=== PATIENT | female | born 1990 | race Caucasian/White ===

== ENCOUNTER 2019-03-11 08:25 | Inpatient (IN) | payer BC, OTHER ==
--- NOTE | 2019-03-11 09:19 | HP ---
Past Medical History - Admission Chief Complaint: 29 y/o P0 female with SIUP at 41 weeks here in early labor, c/ o vaginal bleeding and decreased FM. History of Present Illness: 29 y/o p0 at 41 weeks, here with c/o vaginal bleeding, cramps, decreased FM. complicated only by marginal cord insertion and maternal obesity. Late term . Was to be induced 03/15/19. History Source: Patient, Medical Record - Past Medical History Cardiovascular: No: AFIB, HTN Pulmonary: No: COPD Hepatobiliary: No: Hepatitis B, Hepatitis C Renal/: No: UTI Reproductive: No: Fibroids, PID Heme/Onc: No: Anemia Infectious Disease: No: MRSA, STD's Psych: No: Anxiety, Bipolar, Depression Endocrine: No: Diabetes Mellitus, Hyperthyroidism - Past Surgical History Past Surgical History: Yes: None Hx Myomectomy: No Hx Transabdominal Cerclage: No - Alcohol/Substance Use Hx Alcohol Use: No History of Substance Use: reports: None - Social History Usual Living Arrangement: Yes: With Spouse ADL: Independent History of Recent Travel: No Home Medications - Allergies Allergies/Adverse Reactions: Allergies Allergy/AdvReac Type Severity Reaction Status Date / Time Sulfa (Sulfonamide Allergy Severe Hives Verified 03/11/19 08:59 Antibiotics) sulfamethoxazole Allergy Severe Rash Verified 03/11/19 09:23 [From Bactrim] trimethoprim [From Bactrim] Allergy Severe Rash Verified 03/11/19 09:23 - Home Medications Home Medications: Ambulatory Orders Pnv No.95/Ferrous Fum/Folic AC [ Formula] 1 each PO DAILY 03/11/19 Review of Systems - Review of Systems Constitutional: reports: No Symptoms Eyes: reports: No Symptoms HENT: reports: No Symptoms Neck: reports: No Symptoms Cardiovascular: reports: No Symptoms Respiratory: reports: No Symptoms Gastrointestinal: reports: No Symptoms Genitourinary: reports: Vaginal Bleeding Musculoskeletal: reports: No Symptoms Integumentary: reports: No Symptoms Neurological: reports: No Symptoms Endocrine: reports: No Symptoms Hematology/Lymphatic: reports: No Symptoms Psychiatric: reports: No Symptoms Physical Exam - Maternity Constitutional: Yes: Well Nourished, No Distress, Calm Eyes: Yes: Conjunctiva Clear, EOM Intact HENT: Yes: Atraumatic Neck: Yes: Supple Cardiovascular: Yes: Regular Rate and Rhythm Lungs: Clear to auscultation - Abdominal Exam/OB Fundal Height: 40 Number of Fetuses: Single Presentation: Vertex Contractions: Yes Regularity: Irregular Intensity: Mild/Mod Heart Rate (range): 140 Accelerations: Uniform Decelerations: None - Vaginal Exam/OB Vaginal Bleediing: Yes, Light (c/w bloody show) Dilatation (cm): 1 Effacement (%): 50 Amniotic Membrane Status: Intact Presentation: Vertex/Position Station: -3 - Physical Exam Psychiatric: Yes: Alert, Oriented Hemorrhage Risk Assessment - Risk Factors Medium Risk Factors: Yes: None High Risk Factors: Yes: None Risk Score: 1 Risk Level: Medium Risk Problem List - Problems (1) Post-dates Code(s): O48.0 - POST-TERM Assessment/Plan 29 y/o with SIUP at 41 weeks, contractions, VB, post dates - will admit to L&D IV fluids ambulation re evalaute, may need labor augmentation GBS negative
[2019-03-11] MEDS ORDERED: PROMETHAZINE HCL 25 MG/1 ML VIAL IVPUSH ONE (09:28)
[2019-03-11] MEDS ORDERED: BUTORPHANOL TARTRATE 1 MG/ML VIAL IVPB ONE (09:28)
[2019-03-11 09:50] LABS: BASO % 0.5 % (0-2.0); EOS % 0.8 % (0-4.5); HEMATOCRIT 36.3 % (32.4-45.2); LYMPH % 25.9 % (8-40); MCH 27.6 pg (25.7-33.7); MCHC 33.1 g/dl (32.0-36.0); MEAN CELL VOLUME 83.6 fl (80-96); MEAN PLT VOLUME 9.6 fl (7.5-11.1); MONO % 6.8 % (3.8-10.2); PLATELET COUNT 170 K/MM3 (134-434); RBC 4.35 M/mm3 (3.60-5.2); WHITE BLOOD COUNT 6.2 K/mm3 (4.0-10.0)
[2019-03-11 10:06] LABS: INR 0.98 (0.83-1.09); PROTHROMBIN TIME (PATIENT) 11.6 SEC (9.7-13.0)
[2019-03-11 10:09] LABS: ACTIVATED PTT 26.5 SECONDS (25.2-36.5)
[2019-03-11 10:16] LABS: BLOOD UREA NITROGEN 7.5 mg/dL (7-18); CALCIUM 8.8 mg/dL (8.5-10.1); CREATININE 0.4 mg/dL (0.55-1.3); POTASSIUM 3.8 mmol/L (3.5-5.1)
[2019-03-11 10:18] VITALS: BMI 37.3
[2019-03-11] MEDS: ELECTROLYTE-148 SOLN 1,000 ML IV SCH (10:30)
[2019-03-11] MEDS ORDERED: BUTORPHANOL TARTRATE 1 MG/ML VIAL ONE ×2 (18:49)
[2019-03-11] MEDS ORDERED: PROMETHAZINE HCL 25 MG/1 ML VIAL ONE (18:49)
--- NOTE | 2019-03-11 21:19 | CONSULT ---
Past Medical History, Laborist - Primary Care Physician PCP:: Dr. Matt (Consultation requested.) - Admission Chief Complaint: 29 years old white female, , admitted at 41 wks with some bleeding and irregular contractions. Pt. was restles and uncomfortable. She was given Stadol & Phenergan which helped. Needs to be evaluated and plans formalized. History of Present Illness: Uneventful other than postdates. GBS neg. Marginal cord insertion. Membranes intact. History Source: Patient Limitations to Obtaining History: No Limitations - Past Medical History TELEGRAPH OPERATOR: Denies/None Cardio/Vascular: Denies/None Pulmonary: Denies/None Gastrointestinal: Denies/None Hepatobiliary: Denies/None Renal/: Denies/None Reproductive: Denies/None ...: 1 ...Para: 0 ...Term: 0 ...: 0 ...Spon : 0 ...Induced : 0 ...Multiple Gestation: 0 ...LMP: 05/28/18 ... Weeks Gestation by Dates: 41.0 ...EDC by Dates: 03/04/19 ...EDC by Sono: 03/04/19 Heme/Onc: Denies/None Infectious Disease: Denies/None Psych: Denies/None Musculoskeletal: Denies/None Rheumatology: Denies/None ENT: Denies/None Endocrine: Denies/None Dermatology: Denies/None - Past Surgical History Past Surgical History: Yes: None - Smoking History Smoking history: Never smoked Have you smoked in the past 12 months: No - Alcohol/Substance Use Hx Alcohol Use: No History of Substance Use: reports: None - Social History ADL: Independent History of Recent Travel: No Review of Systems - Review of Systems Constitutional: reports: No Symptoms Eyes: reports: No Symptoms HENT: reports: No Symptoms Neck: reports: No Symptoms Cardiovascular: reports: No Symptoms Respiratory: reports: No Symptoms Gastrointestinal: reports: No Symptoms Genitourinary: reports: No Symptoms Breasts: reports: No Symptoms Reported Musculoskeletal: reports: No Symptoms Integumentary: reports: No Symptoms Neurological: reports: No Symptoms Endocrine: reports: No Symptoms Hematology/Lymphatic: reports: No Symptoms Psychiatric: reports: No Symptoms (WNL other that related.) Physical Exam - Maternity Vital Signs: Vital Signs Temperature 98.2 F 03/11/19 14:00 Pulse Rate 88 03/11/19 15:00 Respiratory Rate 20 03/11/19 15:00 Blood Pressure 114/68 03/11/19 15:00 O2 Sat by Pulse Oximetry (%) Constitutional: Yes: Well Nourished Eyes: Yes: WNL HENT: Yes: WNL Neck: Yes: WNL Cardiovascular: Yes: WNL Lungs: Clear to auscultation Breast(s): Yes: WNL - Abdominal Exam/OB Fundal Height: 40 Number of Fetuses: Single Presentation: Vertex Contractions: No Regularity: Irritability Intensity: Mild Monitor Mode: External Heart Rate (range): WNL, cat 1. Heart Rate Location: Midline Category: I Accelerations: Non-Uniform Decelerations: None - Vaginal Exam/OB Vaginal Bleediing: No Speculum Exam: No Dilatation (cm): 1 Effacement (%): 0 Amniotic Membrane Status: Intact Presentation: Vertex/Position Station: -3 - Physical Exam Musculoskeletal: Yes: WNL Extremities: Yes: WNL Edema: LUE: Trace, RUE: Trace, LLE: Trace, RLE: Trace Integumentary: Yes: WNL ...Motor Strength: WNL Psychiatric: Yes: WNL - Labs Lab Results: CBC, BMP 03/11/19 09:25 03/11/19 09:25 Hemorrhage Risk Assessment - Risk Factors Risk Score: 0 Risk Level: Low Risk Procedures, Laborist - Patient Data Proposed induction date: 03/12/19 - Status Heart Rate: 140 Monitor Accelerations: Uniform Monitor Decelerations: None Criminal Investigator Variability: Average (6-10) Short Term Variability: Present - Gonzalez Score Dilation (cm): 1-2 Position of Cervix: Posterior Effacement %: 0-30 Station *: -3 Cervical consistency: Medium - Amniotic Membrane Amniotic Membrane Status: Intact - Indication for Induction (choose one) Medical complications or condition (diagnosis): Post dates 41 wks. Prodromal labor. - Consent Patient counseled re: risk, benefits, and alternatives: Yes Consent form signed as required: Yes - Labor Induction Labor induction: CERVIDIL (dinoprostone) (Cervidil inserted at 21:30 hrs.) Problem List - Problems (1) Irregular uterine contractions Assessment/Plan: Post dates 41 wks. Low Gonzalez score. Mild bleeding, prodromal labor. Code(s): O62.2 - OTHER UTERINE INERTIA (2) Third trimester bleeding Assessment/Plan IMP.: Postdates . Prodromal labor; irregular contractions. Mild bleeding; not significant. PLAN : Induction discussed, offered. Patient and family understand and agree. Cervidil overnight because of low Gonzalez score. INSERTED without difficulties. Pitocin induction tomorrow. Poss. Ambien. Observe. Continuous (intermittent?) monitoring. All questions answered.
[2019-03-11] MEDS ORDERED: DINOPROSTONE 10 MG VAGINAL SUPPOSITORY VG ONE (21:39)
--- NOTE | 2019-03-12 13:05 | PN ---
Ante-Partal Exam - Subjective Subjective: Pt with abd pain Vital Signs: Vital Signs Temperature 98.0 F 03/12/19 10:00 Pulse Rate 88 03/12/19 12:00 Respiratory Rate 20 03/12/19 12:00 Blood Pressure 122/78 03/12/19 12:00 O2 Sat by Pulse Oximetry (%) Bleeding: No Headache: No Visual changes: No Right upper quadrant pain: No - Contractions Contractions: Yes Regularity: Irregular Monitor Mode: External - Exam during Labor Variability: Moderate Heart Rate Location: [facility] Category: I Monitor Accelerations: Present Monitor Decelerations: None Exam: Vaginal Amniotic Membrane Status: Ruptured Amniotic Fluid: Clear Presentation: Vertex Station: -1 - Intrapartum Hemorrhage Risk Risk Score: 0 Risk Level: Low Risk - Assessment/Plan Assessment/Plan: IUP at 41 week Postdates Cat 1 SROM Irregular contractions Plan epidural
[2019-03-12] MEDS ORDERED: FENTANYL/BUPIVACAINE/NS/PF - PCEA - 50 ML DISP.SYRIN EP ONE ×2 (13:08→18:23)
[2019-03-12] MEDS ORDERED: NALOXONE HCL 0.4 MG/ML VIAL IVPUSH PRN (13:16)
[2019-03-12] MEDS ORDERED: BUPIVACAINE HCL/PF 2.5 MG/ML - 30 ML VIAL IJ ONE (13:18)
[2019-03-12] MEDS: FENTANYL/BUPIVACAINE/NS/PF - PCEA - 50 ML DISP.SYRIN EP SCH (13:40)
[2019-03-12] MEDS: ELECTROLYTE-148 SOLN 1,000 ML IV SCH (14:27)
--- NOTE | 2019-03-12 21:06 | PN ---
Ante-Partal Exam - Subjective Subjective: Pt comfortable with epidural Vital Signs: Vital Signs Temperature 99.1 F 03/12/19 21:00 Pulse Rate 108 H 03/12/19 20:00 Respiratory Rate 19 03/12/19 20:00 Blood Pressure 125/75 03/12/19 20:00 O2 Sat by Pulse Oximetry (%) 100 03/12/19 20:00 Headache: No Visual changes: No Right upper quadrant pain: No - Exam during Labor Heart Rate: 150 Variability: Moderate Heart Rate Location: [facility] Category: I Monitor Decelerations: None Exam: Vaginal Dilatation (cm): 3 Effacement (%): 90 Amniotic Membrane Status: Ruptured Amniotic Fluid: Clear Presentation: Vertex Station: -1 - Assessment/Plan Assessment/Plan: Arrest of Dilation - case discussed with mother and patient pt asked about pitocin IUP @ 41 week Cat 1 Plan Primary Section
[2019-03-12] MEDS ORDERED: METHYLERGONOVINE MALEATE 0.2 MG/1 ML AMP IM PRN (21:26)
[2019-03-12] MEDS ORDERED: SODIUM BICARBONATE 8.4% 50 MEQ/50 ML VIAL ONE (21:41)
[2019-03-12] MEDS ORDERED: LIDO 2%/EPI 1:200000 PRESRVFRE (20 ML SDVIAL) ONE (21:47)
--- NOTE | 2019-03-12 22:00 | PN ---
Ante-Partal Exam - Subjective Subjective: Pt comfortable with epidural Vital Signs: Vital Signs Temperature 99.1 F 03/12/19 21:00 Pulse Rate 108 H 03/12/19 20:00 Respiratory Rate 19 03/12/19 20:00 Blood Pressure 125/75 03/12/19 20:00 O2 Sat by Pulse Oximetry (%) 100 03/12/19 20:00 Bleeding: No Headache: No Visual changes: No Right upper quadrant pain: No - Contractions Contractions: Yes Regularity: Irregular - Exam during Labor Category: I Exam: Vaginal Dilatation (cm): 3 Amniotic Membrane Status: Ruptured Presentation: Vertex - Intrapartum Hemorrhage Risk Risk Score: 0 Risk Level: Low Risk
[2019-03-12] MEDS ORDERED: PHENYLEPHRINE HCL 10 MG/1 ML SINGLE DOSE VIAL ONE (22:13)
[2019-03-12] MEDS ORDERED: ceFAZolin SODIUM 1 GM VIAL ONE (22:15)
[2019-03-12] MEDS ORDERED: OXYTOCIN 10 UNITS/ML VIAL ONE (22:30)
[2019-03-12] MEDS ORDERED: morphine SULFATE/PF 0.5 MG/ML (2cc Syringe - QUVA) ONE ×3 (22:31)
[2019-03-12] MEDS ORDERED: ONDANSETRON 4 MG/2 ML VIAL IVPUSH PRN (23:20)
[2019-03-12 23:36] LABS: ARTERIAL BLD GAS O2 SATURATION 13.2 % (95-98); ARTERIAL BLOOD GAS BASE EXCESS -2.8 meq/l (-2-2); ARTERIAL BLOOD GAS PCO2 56.7 mmHg (35-45); ARTERIAL BLOOD GAS pH 7.27 (7.35-7.45)
[2019-03-12 23:41] LABS: ALLENS TEST POSITIVE
[2019-03-12 23:42] LABS: ARTERIAL BLOOD GAS PO2 < 49 mmHg (80-100)
[2019-03-13] MEDS ORDERED: OXYTOCIN 20 UNITS in 0.9% NS 20 UNIT/1,000 ML INFUS.BAG IV ONE (00:22)
--- NOTE | 2019-03-13 02:37 | OP ---
Operative Note - Note: Operative Date: 03/12/19 Pre-Operative Diagnosis: Failure to progress. IUP at 41 week Operation: Primary low transverse Section Findings: live female infant delivered in OA position Post-Operative Diagnosis: Same as Pre-op Surgeon: Tiana Awan Oracle Database Analyst: Crow Squires Anesthesia: Epidural Estimated Blood Loss (mls): 600 Operative Report Dictated: Yes
[2019-03-13] MEDS: IBUPROFEN 800 MG/8 ML IJ IVPB PRN ×2 (08:03→15:19)
--- NOTE | 2019-03-13 08:37 | PN ---
Post Note - Post Date of Delivery: 03/12/19 Vital Signs: Vital Signs - 24 hr 03/12/19 03/12/19 03/12/19 09:00 10:00 11:00 Temperature 98.0 F Pulse Rate 92 H 89 86 Respiratory 20 18 20 Rate Blood Pressure 115/83 118/78 117/81 O2 Sat by Pulse Oximetry (%) 03/12/19 03/12/19 03/12/19 12:00 13:40 13:45 Temperature Pulse Rate 88 95 H 88 Respiratory 20 18 18 Rate Blood Pressure 122/78 120/83 109/77 O2 Sat by Pulse 100 100 Oximetry (%) 03/12/19 03/12/19 03/12/19 13:50 13:55 14:00 Temperature Pulse Rate 88 87 90 Respiratory 18 18 18 Rate Blood Pressure 117/77 119/78 94/60 O2 Sat by Pulse 99 97 97 Oximetry (%) 03/12/19 03/12/19 03/12/19 14:15 14:30 14:38 Temperature 98.1 F Pulse Rate 87 91 H Respiratory 18 18 Rate Blood Pressure 103/69 94/63 O2 Sat by Pulse 98 97 98 Oximetry (%) 03/12/19 03/12/19 03/12/19 14:45 15:00 15:15 Temperature 98.2 F Pulse Rate 91 H 90 95 H Respiratory 18 18 18 Rate Blood Pressure 97/62 94/63 99/64 O2 Sat by Pulse 97 98 99 Oximetry (%) 03/12/19 03/12/19 03/12/19 15:30 15:45 16:00 Temperature 98.3 F Pulse Rate 91 H 98 H 97 H Respiratory 18 18 18 Rate Blood Pressure 99/64 99/63 101/68 O2 Sat by Pulse 99 98 98 Oximetry (%) 03/12/19 03/12/19 03/12/19 16:15 16:30 16:45 Temperature Pulse Rate 92 H 96 H 102 H Respiratory 18 18 18 Rate Blood Pressure 102/67 95/65 99/68 O2 Sat by Pulse 100 99 99 Oximetry (%) 03/12/19 03/12/19 03/12/19 17:00 17:15 17:30 Temperature 98.2 F Pulse Rate 95 H 98 H 92 H Respiratory 18 18 18 Rate Blood Pressure 100/69 112/73 115/77 O2 Sat by Pulse 99 98 99 Oximetry (%) 03/12/19 03/12/19 03/12/19 17:45 18:00 18:15 Temperature Pulse Rate 102 H 106 H 101 H Respiratory 18 18 18 Rate Blood Pressure 111/72 114/75 117/78 O2 Sat by Pulse 99 99 98 Oximetry (%) 03/12/19 03/12/19 03/12/19 18:30 18:45 19:00 Temperature 98.8 F Pulse Rate 105 H 97 H 110 H Respiratory 18 18 18 Rate Blood Pressure 112/71 121/82 120/77 O2 Sat by Pulse 100 99 100 Oximetry (%) 03/12/19 03/12/19 03/12/19 19:15 19:30 19:45 Temperature Pulse Rate 100 H 110 H 102 H Respiratory 18 19 19 Rate Blood Pressure 122/77 121/62 126/80 O2 Sat by Pulse 100 100 100 Oximetry (%) 03/12/19 03/12/19 03/12/19 20:00 20:15 20:30 Temperature Pulse Rate 108 H 109 H 107 H Respiratory 19 20 18 Rate Blood Pressure 125/75 119/84 121/78 O2 Sat by Pulse 100 100 100 Oximetry (%) 03/12/19 03/12/19 03/12/19 20:45 21:00 21:15 Temperature 99.1 F Pulse Rate 104 H 111 H 111 H Respiratory 19 19 19 Rate Blood Pressure 116/75 116/79 124/86 O2 Sat by Pulse 100 100 100 Oximetry (%) 03/12/19 03/12/19 03/12/19 21:30 21:45 22:00 Temperature Pulse Rate 113 H 108 H 107 H Respiratory 20 19 19 Rate Blood Pressure 122/76 122/79 124/81 O2 Sat by Pulse 100 100 100 Oximetry (%) 03/12/19 03/12/19 03/12/19 23:10 23:25 23:40 Temperature 98.0 F Pulse Rate 89 90 89 Respiratory 18 19 18 Rate Blood Pressure 97/48 L 107/49 L 118/65 O2 Sat by Pulse 100 100 100 Oximetry (%) 03/12/19 03/13/19 03/13/19 23:55 01:00 02:00 Temperature 98.4 F 98.5 F Pulse Rate 86 89 Respiratory 17 18 18 Rate Blood Pressure 106/63 111/56 L O2 Sat by Pulse 100 96 Oximetry (%) 03/13/19 03/13/19 03/13/19 03:00 03:59 05:00 Temperature Pulse Rate Respiratory 18 18 18 Rate Blood Pressure O2 Sat by Pulse Oximetry (%) 03/13/19 03/13/19 06:00 07:00 Temperature 98.3 F Pulse Rate 95 H Respiratory 18 18 Rate Blood Pressure 122/71 O2 Sat by Pulse Oximetry (%) Labs: Laboratory Results - last 24 hr 03/12/19 03/12/19 22:38 22:38 Anticoagulation Therapy No Result Required. Puncture Site No Result Required. ABG pH 7.27 L ABG pCO2 at Pt Temp 56.7 H ABG pO2 at Pt Temp < 49 L* ABG HCO3 25.0 ABG O2 Sat (Measured) 13.2 L ABG O2 Content 15.8 ABG Base Excess -2.8 L Darren Test Positive Cord Blood pH 7.33 Cord Blood PCO2 48.4 Cord Blood PO2 < 49 H Cord Blood HCO3 24.9 Cord Base Excess -1.2 L O2 Delivery Device No Result Required. Oxygen Flow Rate Yes Vent Mode No Result Required. Vent Rate No Result Required. Mechanical Rate No Result Required. Pressure Support Vent No Result Required. - Subjective Subjective: No Complaints - Objective Afebrile: Yes Breast: Not engorged Abdomen: Soft Uterus: Fundus firm Vagina: Scant lochia Extremities: Non-tender
[2019-03-13 09:08] LABS: BASO % 0.2 % (0-2.0); EOS % 0.2 % (0-4.5); HEMATOCRIT 31.5 % (32.4-45.2); HEMOGLOBIN 10.5 GM/dL (10.7-15.3); LYMPH % 17.5 % (8-40); MCH 27.9 pg (25.7-33.7); MCHC 33.3 g/dl (32.0-36.0); MEAN CELL VOLUME 83.8 fl (80-96); MEAN PLT VOLUME 9.6 fl (7.5-11.1); NEUT % 75.1 % (42.8-82.8); PLATELET COUNT 153 K/MM3 (134-434); RBC 3.76 M/mm3 (3.60-5.2); RDW 14.5 % (11.6-15.6); WHITE BLOOD COUNT 8.4 K/mm3 (4.0-10.0)
[2019-03-13] MEDS: ENOXAPARIN NA (PORCINE) 40 MG/0.4 ML DISP.SYRIN SQ SCH (10:46)
[2019-03-13] MEDS: PRENATAL VITAMINS W/ FOLIC ACID TABLET (FP) PO SCH (10:46)
--- NOTE | 2019-03-13 12:00 | PN ---
Progress Note (short form) - Note Progress Note: 29yo F s/p spinal + duramorph for c/s pt feels well, pain controlled cont current mgmt good result anesthetic care
[2019-03-13] MEDS ORDERED: BISACODYL 10 MG SUPP.RECT RC PRN (21:26)
[2019-03-13] MEDS: SIMETHICONE 80 MG TAB.CHEW (FP) PO PRN (23:56)
[2019-03-13] MEDS: IBUPROFEN 600 MG TABLET (FP) PO PRN (23:56)
[2019-03-14] MEDS: IBUPROFEN 600 MG TABLET (FP) PO PRN ×4 (07:19→21:26)
--- NOTE | 2019-03-14 07:21 | PN ---
Post Progress Note - Subjective Subjective: 29 yo P1 status post primary , seen and evaluated. Doing well. Post Day: 2 Type of Delivery: Primary C/S Vital Signs: Vital Signs Temperature 98.1 F 03/13/19 22:00 Pulse Rate 97 H 03/13/19 22:00 Respiratory Rate 18 03/13/19 22:00 Blood Pressure 119/80 03/13/19 22:00 O2 Sat by Pulse Oximetry (%) 96 03/13/19 01:00 Breast Exam: Yes: Soft Uterus: Yes: Fundus @ umbilicus Incision: Yes: Dressing dry and intact Abdomen/GI: Yes: Abdomen soft, Tolerating PO Lochia: Yes: Rubra Lochia, amount: Small Extremities: Yes: Calves non-tender Activity: Ambulating - Labs Labs: CBC WBC 8.4 K/mm3 (4.0-10.0) 03/13/19 07:12 RBC 3.76 M/mm3 (3.60-5.2) 03/13/19 07:12 Hgb 10.5 GM/dL (10.7-15.3) L 03/13/19 07:12 Hct 31.5 % (32.4-45.2) L 03/13/19 07:12 MCV 83.8 fl (80-96) 03/13/19 07:12 MCH 27.9 pg (25.7-33.7) 03/13/19 07:12 MCHC 33.3 g/dl (32.0-36.0) 03/13/19 07:12 RDW 14.5 % (11.6-15.6) 03/13/19 07:12 Plt Count 153 K/MM3 (134-434) 03/13/19 07:12 MPV 9.6 fl (7.5-11.1) 03/13/19 07:12 Absolute Neuts (auto) 6.3 K/mm3 (1.5-8.0) 03/13/19 07:12 Neutrophils % 75.1 % (42.8-82.8) 03/13/19 07:12 Lymphocytes % 17.5 % (8-40) D 03/13/19 07:12 Monocytes % 7.0 % (3.8-10.2) 03/13/19 07:12 Eosinophils % 0.2 % (0-4.5) 03/13/19 07:12 Basophils % 0.2 % (0-2.0) 03/13/19 07:12 Nucleated RBC % 0 % (0-0) 03/13/19 07:12 Problem List - Problems (1) Status post primary low transverse section Code(s): Z98.891 - HISTORY OF UTERINE SCAR FROM PREVIOUS SURGERY Assessment/Plan Status post primary Stable Ambulation Analgesia as needed Continue routine post op care
[2019-03-14] MEDS: ENOXAPARIN NA (PORCINE) 40 MG/0.4 ML DISP.SYRIN SQ SCH (09:47)
[2019-03-14] MEDS: PRENATAL VITAMINS W/ FOLIC ACID TABLET (FP) PO SCH (09:47)
[2019-03-14] MEDS ORDERED: FLU VACC QS2019-20(6MOS UP)/PF 60 MCG/0.5 ML SYRINGE IM ONE (10:00)
[2019-03-14] MEDS ORDERED: DIPHTH,PERTUSS(ACELL),TET 0.5 ML DISP.SYRIN IM ONE (10:00)
[2019-03-14] MEDS: SIMETHICONE 80 MG TAB.CHEW (FP) PO PRN ×2 (17:21→21:26)
[2019-03-14] MEDS: OXYTOCIN 30 UNITS in 0.9% NS 30 UNIT/500 ML INFUS.BAG IVPB SCH ×2 (19:29→19:30)
[2019-03-14] MEDS: OXYTOCIN 20 UNITS in 0.9% NS 20 UNIT/1,000 ML INFUS.BAG IV SCH (19:29)
[2019-03-14] MEDS: ELECTROLYTE-148 SOLN 1,000 ML IV SCH (19:30)
[2019-03-14] MEDS: FENTANYL/BUPIVACAINE/NS/PF - PCEA - 50 ML DISP.SYRIN EP SCH ×2 (19:30→19:31)
[2019-03-14] MEDS ORDERED: SENNOSIDES/DOCUSATE COMBO (SENNA PLUS) TABLET (UD) PO PRN (22:00)
[2019-03-15 07:34] VITALS: BP 124/79; PULSE 90; TEMP 98
[2019-03-15] MEDS: IBUPROFEN 600 MG TABLET (FP) PO PRN (07:41)
[2019-03-15 08:38] LABS: BASO % 0.3 % (0-2.0); EOS % 2.6 % (0-4.5); HEMATOCRIT 32.1 % (32.4-45.2); HEMOGLOBIN 10.7 GM/dL (10.7-15.3); LYMPH % 19.8 % (8-40); MCH 27.9 pg (25.7-33.7); MCHC 33.2 g/dl (32.0-36.0); MEAN CELL VOLUME 83.9 fl (80-96); MEAN PLT VOLUME 9.5 fl (7.5-11.1); MONO % 6.6 % (3.8-10.2); NEUT % 70.7 % (42.8-82.8); PLATELET COUNT 201 K/MM3 (134-434); RBC 3.83 M/mm3 (3.60-5.2); RDW 14.6 % (11.6-15.6); WHITE BLOOD COUNT 7.6 K/mm3 (4.0-10.0)
--- NOTE | 2019-03-15 08:39 | DS ---
Physical Exam-EMBROIDERY PATTERNMAKER Vital Signs: Vital Signs Temperature 98.0 F 03/15/19 07:33 Pulse Rate 90 03/15/19 07:33 Respiratory Rate 20 03/15/19 07:33 Blood Pressure 124/79 03/15/19 07:33 O2 Sat by Pulse Oximetry (%) 96 03/13/19 01:00 Constitutional: Yes: Well Nourished, No Distress Gastrointestinal: Yes: WNL, Soft ....Post : Yes: Uterus firm, Uterus non-tender Wound/Incision: Yes: Clean/Dry, Well Approximated, Steri Strips, Open to air Psychiatric: Yes: WNL, Alert, Oriented Labs: CBC, BMP 03/11/19 09:25 Delivery - Delivery Section: Primary, Low Flap Transverse Type of Anesthesia: Epidural Episiotomy/Laceration: None EBL (cc): 600 Delivery, Single - Stages of Labor Date 1st Stage Initiatied: 03/11/19 Time 1st Stage Initiated: 19:00 Date of Delivery: 03/12/19 Time of Delivery: 22:29 Time Placenta Delivered: 22:30 Placenta: Yes: Spontaneous - Condition of Infant Transfer And Pumphouse Operator/Driller Portable Present: Yes Name: Lyubov aVlencia Infant Gender: Female Weight: 7 lb 14 oz Position: OT Total Hours ROM (Hrs/Mins): 9hrs 26min - 1 Minute Total Score: 9 5 Minutes Total Score: 9 - Feeding Plan Initial Plan: Exclusive throughout hospitalization Discharge Summary Problems reviewed: Yes Reason For Visit: LABOR ADMISSION Current Active Problems Irregular uterine contractions (Acute) Post-dates (Acute) Status post primary low transverse section (Acute) Third trimester bleeding (Acute) Procedures: Principal: primary low transverse section Hospital Course: unremarkable Condition: Good - Instructions Diet, Activity, Other Instructions: Physical activity Resume your normal everyday activity as tolerated no heavy lifting or exercise until seen by your surgeon. You may walk unlimited kristopher of and climb stairs. You may resume driving the car when you feel safe and comfortable behind the wheel. No sexual activity as instructed. Wound care If you have a bandage, leave it on, and keep dry for 48-72 hours. After that time discard the outer bandage. If they are tapes on the skin under the out of bandage leave them in place. They will peel off in the next 7 to 10 days. Do Not Peel them off. You may shower the day after surgery. If there are tapes present on the skin, you may shower over them. Diet There are no dietary restrictions. Eat healthy, high-fiber foods. Drink 6 to 8 glasses of liquid each day. This will assist in keeping your bowels are regular. Pain management You may take Tylenol or acetaminophen or Ibuprofen (for example, Motrin, Advil etc.) from my pain prescription medication is ordered should be taken as prescribed for moderate to severe pain. Call MD for any of the following: Severe pain not relieved by medication Fever of 101 or higher Excessive bleeding or drainage on dressing Inability to urinate Disposition: HOME - Home Medications Comprehensive Discharge Medication List: Ambulatory Orders Pnv No.95/Ferrous Fum/Folic AC [ Formula] 1 each PO DAILY 03/11/19 Ibuprofen [Motrin -] 600 mg PO QID #28 tablet 03/15/19
--- NOTE | 2019-03-15 11:54 | OP ---
DATE OF OPERATION: 03/12/2019 PREOPERATIVE DIAGNOSES: 1. Failure to progress. 2. Intrauterine at 41 weeks. 3. Live female delivered in OA position. POSTOPERATIVE DIAGNOSES: 1. Failure to progress. 2. Intrauterine at 41 weeks. 3. Live female infant delivered in OA position. OPERATION: Primary low transverse section. SURGEON: Tiana Awan MD DEVELOPMENT SCIENTIST: ELEAZAR Garcia MD unavailable ANESTHESIA: Epidural. ESTIMATED BLOOD LOSS: 600 mL PROCEDURE: Patient was taken to the operating room and placed in the supine position, prepped and draped in the usual sterile fashion. Timeout was performed in accordance to the hospital regulation. A scalpel was then used to make a Pfannenstiel skin incision. Cautery was then used to cut the layers of the abdominal wall to the level of the fascia. The fascia was cut in the midline and cautery was then used to open the fascia in smiling fashion. A was then used to bluntly sharply dissect the rectus muscle off the fascia. The muscle was split in the midline. Peritoneal cavity was entered and carried up and downward. Bladder retractor was then placed. Vesicouterine section was then entered and the bladder was bluntly dissected out of the operative field. The scalpel was then used to make a low transverse uterine incision. The incision was carried upwards using bandage scissors. A live female was then delivered in OA position. Nose and mouth suction was perform. The shoulders were delivered without difficulty. The cord was clamped and cut, cord blood obtained. The placenta was manually extracted from the uterus. The uterus was exteriorized and cleaned with clean lap pads. The infant was handed to the buffing wheel former automatic. The uterus was then cleaned with clean lap pads and exteriorized. The uterine incision was then closed using 0 Biosyn suture. The first layer continuous interlocking, the 2nd layer imbricating the first layer. Hemostasis was achieved. Uterus was interiorized. The abdominal cavity cleaned with clean lap pads. Tubes and ovaries noted to be normal. Abdominal sweep done. Peritoneum closed using 0 Biosyn suture. The fascia was then closed using 0 Vicryl suture in 2 parts. The skin was then closed using 3-0 Vicryl in subcuticular fashion. Wound was washed and dressed. Patient tolerated the procedure well. Estimated blood loss 600 mL. TIANA AWAN M.D. [id number]
--- NOTE | 2019-03-15 17:02 | PATH ---
Surgical Pathology Report Patient Name: HELEN THACKER Med. Rec. #: [id number] /Age/Gender: 1990 (Age: 29) / F Account: [id number] Location: [facility] OBS/CASE REVIEWER Taken: 03/12/2019 Received: 03/14/2019 Reported: 03/15/2019 Physicians: Janet Hawley M.D. Specimen(s) Received PLACENTA Clinical History , 41.1 weeks gestation, arrest of dilatation Final Diagnosis PLACENTA, SECTION: 622 G THIRD TRIMESTER PLACENTA WITH TRIVASCULAR UMBILICAL CORD AND UNREMARKABLE PLACENTAL MEMBRANES. Electronically Signed Jessica Davenport M.D. Gross Description The specimen is received fresh labeled placenta and is a 622 gram, 22 x 17 x 1.5 cm. placenta with attached membranes and umbilical cord. The attached membranes are rose, opaque and insert marginally. The umbilical cord measures 20 cm. in length and averages 1.2 cm. in diameter. The cord inserts eccentrically, 4 cm. to the nearest margin. No true knots or strictures are identified. Cut surface of the umbilical cord reveals 3 vessels. The surface is fowler-blue with minimal fibrin deposition and appropriate caliber vessels. The maternal surface is red-brown with focal defects. Sectioning reveals red-brown, spongy parenchyma. No lesions are identified. Front Counter Clerk sections are submitted in three cassettes as follows: 1- membrane rolls and umbilical cord; 2-3- full thickness sections of placenta. MLSZ/03/14/2019 sanml/03/14/2019
== END 2019-03-15 10:40 | disposition home or self-care (01) | DRG 788 ==
LOC: JDEL 08:25 → JLDR 09:15 → J3W 03-13 00:31
PROVIDERS: ADMIT Obstetrics & Gynecology; ATTEND Obstetrics & Gynecology
PROC: 10D00Z1 Extraction of Products of Conception, Low, Open Approach (ICD-10-PCS; principal; 2019-03-12)
DX: O48.0 Post-term pregnancy (principal); Z3A.41 41 weeks gestation of pregnancy; O66.40 Failed trial of labor, unspecified; Z37.0 Single live birth
CPT/HCPCS: 36415; 36600; 59025; 80048; 82803; 85025; 85610; 85730; 86593; 86850; 86900; 86901; 88307-TC; 90686; 90715